=== PATIENT | female | born 1950 | race Caucasian/White ===

== ENCOUNTER 2019-04-23 14:38 | Emergency (ER) | payer OTHER ==
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
--- NOTE | 2019-04-23 15:37 | ER ---
Nurse's Notes [facility] Name: Laurita Corcoran Age: 68 yrs Sex: Female : 1950 Arrival Date: 04/23/2019 Time: 14:40 Bed 7 Private MD: Diagnosis: Radiculopathy, cervical region;Pain in left arm Presentation: 04/23 14:46 Presenting complaint: Patient states: "Last night I got to hurting so bad in my left aj1 arm, it was like I had 100 of them red wasps stinging my shoulder then it went all the way down my arm to my hand. I've been taking ibuprofen and ecotrin to stop the pain" Denies any recent injury to shoulder. Reports that pain is aggravated by moving her arm. Transition of care: patient was not received from another setting of care. Onset of symptoms was April 23, 2019. Risk Assessment: Do you want to hurt yourself or someone else? Patient reports no desire to harm self or others. Initial Sepsis Screen: Does the patient meet any 2 criteria? No. Patient's initial sepsis screen is negative. Does the patient have a suspected source of infection? No. Patient's initial sepsis screen is negative. Care prior to arrival: None. 14:46 Method Of Arrival: Ambulatory aj 14:46 Acuity: VANESSA 3 aj1 Triage Assessment: 14:48 General: Appears in no apparent distress. comfortable, Behavior is calm, cooperative, aj1 appropriate for age. Pain: Complains of pain in anterior aspect of left shoulder and posterior aspect of left shoulder Pain currently is 10 out of 10 on a pain scale. Neuro: Level of Consciousness is awake, alert, obeys commands. Cardiovascular: Patient's skin is warm and dry. Respiratory: Airway is patent Respiratory effort is even, unlabored, Respiratory pattern is regular, symmetrical. Historical: - Allergies: 14:48 Codeine; aj1 - Home Meds: 14:48 Lisinopril Oral [Active]; aj1 - PMHx: 14:48 Hypertension; aj1 - Immunization history:: Flu vaccine is not up to date. - Social history:: Smoking status: Patient/guardian denies using tobacco. - Ebola Screening: : Patient denies travel to an Ebola-affected area in the 21 days before illness onset. Screenin:37 Abuse screen: Denies threats or abuse. Denies injuries from another. Nutritional jl7 screening: No deficits noted. Tuberculosis screening: No symptoms or risk factors identified. Fall Risk None identified. Assessment: 15:00 General: Appears in no apparent distress. uncomfortable, Behavior is calm, cooperative, jl7 appropriate for age. Pain: Complains of pain in left arm Pain currently is 4 out of 10 on a pain scale. at worst was 10 out of 10 on a pain scale. Quality of pain is described as stinging, Pain began 2-3 days ago. Is continuous. Neuro: Level of Consciousness is awake, alert, obeys commands, Oriented to person, place, time, situation. Cardiovascular: Patient's skin is warm and dry. Respiratory: Airway is patent Respiratory effort is even, unlabored, Respiratory pattern is regular, symmetrical. Derm: Skin is pink, warm \\T\\ dry. Musculoskeletal: Range of motion: limited in left shoulder. Vital Signs: 14:49 BP 143 / 77; Pulse 83; Resp 18; Temp 98.1; Pulse Ox 97% on R/A; Weight 65.77 kg (R); aj1 Height 5 ft. 3 in. (160.02 cm) (R); Pain 10/10; 15:37 BP 156 / 74; Pulse 73; Resp 16 S; Pulse Ox 96% on R/A; Pain 4/10; jl7 14:49 Body Mass Index 25.69 (65.77 kg, 160.02 cm) aj1 ED Course: 14:40 Patient arrived in ED. as 14:48 Triage completed. aj1 14:49 Arm band placed on Patient placed in an exam room. aj1 15:01 Lucille Schroeder FNP-C is PHCP. snw 15:01 Yuri Casitllo MD is Attending Physician. snw 15:08 Liz Ross RN is Primary Nurse. jl7 15:13 CT completed. Patient tolerated procedure well. Patient moved to CT via wheelchair. Patient moved back from CT. 15:19 CT Head C Spine In Process Unspecified. EDMS 15:37 Patient has correct armband on for positive identification. Bed in low position. Call jl7 light in reach. Side rails up X 1. Pulse ox on. NIBP on. 15:51 No provider procedures requiring assistance completed. Patient did not have IV access hb during this emergency room visit. Administered Medications: 15:42 Not Given (Patient Refused): fentaNYL (PF) 25 mcg IM once; RASS on ADMIN: Combtv4, Very jl7 Agttd3, Agttd2, Rstlss1, AlertClm0, Drwsy-1, Lt Sdtn-2, Mod Sdtn-3, Dp Sdtn-4, UnArsble-5 Outcome: 15:36 Discharge ordered by MD. hoskins 15:51 Discharged to home ambulatory. hb 15:51 Condition: stable 15:51 Discharge instructions given to patient, Instructed on discharge instructions, follow up and referral plans. medication usage, Demonstrated understanding of instructions, follow-up care, medications, Prescriptions given X 2. 15:51 Patient left the ED. hb Signatures: Dispatcher [employer] EDMS Carol Myers, RN RN aj1 Lucille Schroeder, SPECIAL EVENTS ASSISTANT-C SPECIAL EVENTS ASSISTANT-Csnw Maria M Ramirez Shannon sw Baxter, Heather, RN RN Liz Ross RN RN jl7 Corrections: (The following items were deleted from the chart) 14:49 14:46 Presenting complaint: Patient states: "Last night I got to hurting so bad in my aj1 left arm, it was like I had 100 of them red wasps stinging my shoulder then it went all the way down my arm to my hand. I've been taking ibuprofen and ecotrin to stop the pain" Denies any recent injury to shoulder. Reports that pain is aggravated by moving her arm aj1 14:49 14:48 Pain: Complains of pain in anterior aspect of right shoulder and posterior aspect aj1 of right shoulder Pain currently is 10 out of 10 on a pain scale. aj1
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
[2019-04-23 16:09] VITALS: TEMP 98.1
[2019-04-23 16:11] VITALS: BP 156/74; O2SAT 96
== END 2019-04-23 15:51 | disposition home or self-care (01) ==
LOC: ER 14:38
DX: M79.602 Pain in left arm (principal); M54.12 Radiculopathy, cervical region
CPT/HCPCS: 70450; 72125; 99284

== ENCOUNTER 2020-09-27 16:43 | Emergency (ER) | payer OTHER ==
--- OUTSIDE RECORDS SUMMARY | 2020-09-27 16:47 | XMS REPORT | Continuity of Care Document ---
:1950 Author Organization [facility] t Address [address] [place] [address] Care Team Providers Name Role Phone Asked, Pcp Primary Care Physician Unavailable Problems This patient has no known problems. Allergies, Adverse Reactions, Alerts Allergy Allergy Status Severity Reaction(s) Onset Inactive Treating Comm ents Source Name Type Date Date Clinician Adhesive Propensi Active [place] [facility] ty to 5-20 Methodi icones adverse 00:00: st reaction 00 s to drug Codeine Propensi Active [facility] [place] ty to Intolerance 5-20 Metho di adverse 00:00: st reaction 00 s to drug Social History Social Habit Start Date Stop Date Quantity Comments Source Tobacco use and 2018-10-05 2018-10-05 Never used [facility] ethodist exposure 00:00:00 00:00:00 Alcohol intake 2018-10-05 2018-10-05 Current drinker [place] 00:00:00 00:00:00 of alcohol (finding) Alcohol Comment 2018-10-02 2018-10-02 occasion [facility] ethodist 00:00:00 00:00:00 Sex Ass[birth year] [facility] ethodist 00:00:00 00:00:00 Smoking Status Start Date Stop Date Source Never smoker [place] Method[facility] t Medications Ordered Filled Start Stop Current Ordering Indication Dosage Frequency Signature Comments Components Source Medication Medication Date Date Medication? Clinician (SIG) Name Name omega-3 2019- Yes 1g QD Take 1 g [place] acid ethyl 5-20 by mouth Metho di esters 17:08: daily. st (LOVAZA) 1 45 gram capsule cyanocobala 2018- Yes 2500ug QD Place Jean ston min, 5-20 2,500 mcg Methodi vitamin 17:08: under the st B-12, 5,000 45 tongue mcg tablet, daily. sublingual Procedures This patient has no known procedures. Encounters Start End Encounter Admission Attending Care Care Encounter Source Date/Time Date/Time Type Type Clinicians Facility Department ID 2020-07-31 2020-07-31 Outpatient [facility] [id number] [facility] 00[facility] 00:[facility]00 [facility] 2020-06-26 2020-06-26 Outpatient [facility] [id number] [facility]00 [facility] Results This patient has no known results.
[2020-09-27] MEDS ORDERED: IBUPROFEN 200 MG TAB PO ONE (17:37)
[2020-09-27] MEDS ORDERED: IBUPROFEN 400 MG TAB ONE (17:38)
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
--- NOTE | 2020-09-27 18:31 | ER ---
Nurse's Notes [facility] Name: Laurita Corcoran Age: 69 yrs Sex: Female : 1950 Arrival Date: 09/27/2020 Time: 16:44 Bed 2 Private MD: Diagnosis: Fall (on) (from) other stairs and steps;Displaced comminuted fracture of shaft of radius, right arm-comminuted fracture distal right radius, extends intraarticularly, mild to moderate displacement of fracture fragments;Other and unspecified ovarian cysts-4 cm left cystic mass, further evaluation needed Presentation: 09/27 16:55 Chief complaint: Patient states: Patient states that she was trying to trim a palm tree aj1 in her yard, when she lost her balance and fell of the ladder, falling 7 and a half feet. Denies hitting head, denies neck pain, head pain or back pain. States that she landed on her right side and now is having severe pain in the right wrist. Patient states that she passed out for "a few seconds" when she hit the ground. Care prior to arrival: None. Mechanism of Injury: Fall from ladder approximately 7.5 feet. Trauma event details: Injury occurred in the [facility]. 16:55 Acuity: VANESSA 3 aj1 16:55 Method Of Arrival: Wheelchair aj1 16:59 Coronavirus screen: Client denies travel out of the [place] in the last 14 days. At this aj1 time, the client does not indicate any symptoms associated with coronavirus-19. Ebola Screen: Patient denies travel to an Ebola-affected area in the 21 days before illness onset. Initial Sepsis Screen: Does the patient meet any 2 criteria? No. Patient's initial sepsis screen is negative. Does the patient have a suspected source of infection? No. Patient's initial sepsis screen is negative. Risk Assessment: Do you want to hurt yourself or someone else? Patient reports no desire to harm self or others. Onset of symptoms was September 27, 2020. 17:02 Acuity: VANESSA 2 aj1 Historical: - Allergies: 17:00 Codeine; aj1 - Home Meds: 17:00 lisinopril Oral [Active]; Lipitor Oral [Active]; aj1 - PMHx: 17:00 Hypertension; Hyperlipidemia; aj1 - Immunization history:: Adult Immunizations up to date, Client reports having NOT received the Covid vaccine. - Social history:: Smoking status: Patient/guardian denies using tobacco. Screenin:55 Abuse screen: Denies threats or abuse. Denies injuries from another. Tuberculosis aj1 screening: No symptoms or risk factors identified. 19:39 Nutritional screening: No deficits noted. Fall Risk None identified. ea Primary Survey: 16:55 NO uncontrolled hemorrhage observed. A: The patient is alert. Airway: patent. aj1 Breathing/Chest: Respiratory pattern: regular, Respiratory effort: spontaneous, unlabored. Circulation: Skin color: pink. Disability Alert. 17:31 Reassessment Breathing/Chest Respiratory pattern Regular Respiratory effort Spontaneous tr6 Unlabored. Assessment: 16:55 General: Appears in no apparent distress. uncomfortable, Behavior is calm, cooperative, aj1 appropriate for age. Pain: Complains of pain in right wrist Pain does not radiate. Pain currently is 9 out of 10 on a pain scale. Quality of pain is described as sharp, shooting. Neuro: Level of Consciousness is awake, alert, obeys commands. Cardiovascular: Denies chest pain, Patient's skin is warm and dry. Respiratory: Airway is patent Respiratory effort is even, unlabored, Respiratory pattern is regular, symmetrical, Denies shortness of breath. Musculoskeletal: Range of motion: limited in right wrist. 17:06 Reassessment: MD Johnson at bedside. tr6 17:23 General: Behavior is flat, listless. Pain: Complains of pain in right wrist. Neuro: No tr6 deficits noted. Cardiovascular: No deficits noted. Respiratory: No deficits noted. GI: Reports nausea, vomiting, pt states she was feeling so bad on the way over that she had to stop and throw up on the side of the road. : No deficits noted. EENT: No deficits noted. Derm: No deficits noted. 19:39 Reassessment: Patient and/or family updated on plan of care and expected duration. Pain ea level reassessed. Patient is alert, oriented x 3, equal unlabored respirations, skin warm/dry/pink. Discharge instruction given to patient and family both verbalized the understanding of instruction. Pt left ED ambulatory tolerating well. Vital Signs: 16:55 BP 136 / 58; Pulse 72; Resp 18; Temp 97.3; Pulse Ox 98% on R/A; Weight 68.04 kg (R); aj1 Height 5 ft. 3 in. (160.02 cm) (R); Pain 9/10; 19:30 BP 130 / 70; Pulse 70; Resp 18; Temp 98; Pulse Ox 99% ; ea 16:55 Body Mass Index 26.57 (68.04 kg, 160.02 cm) aj1 [place] Coma Score: 16:55 Eye Response: spontaneous(4). Verbal Response: oriented(5). Motor Response: obeys aj1 commands(6). Total: 15. Trauma Score (Adult): 16:55 Eye Response: spontaneous(1); Verbal Response: oriented(1); Motor Response: obeys aj1 commands(2); Systolic BP: > 89 mm Hg(4); Respiratory Rate: 10 to 29 per min(4); [place] Score: 15; Trauma Score: 12 ED Course: 16:44 Patient arrived in ED. as 16:50 Jovan Johnson MD is Attending Physician. nanda 16:55 Patient has correct armband on for positive identification. Bed in low position. Call aj1 light in reach. 16:55 Patient maintains SpO2 saturation greater than 95% on room air. aj1 16:57 Triage completed. aj1 17:00 Arm band placed on Patient placed in an exam room, Patient Patient triaged in ER bed 2. aj1 17:25 No provider procedures requiring assistance completed. tr6 17:28 Wrist Right 3 View XRAY In Process Unspecified. EDMS 17:42 Riccardo Sullivan, CHRISTINA is Primary Nurse. bp 18:02 CT Traumagram (Head C Spine CAP wo con) In Process Unspecified. EDMS 18:29 Hossein Mckeon MD is Referral Physician. nanda 18:30 Lorena Ray MD is Referral Physician. nanda 19:38 Orthoglass splint: Sugar tong splint applied on right arm. Sling applied to right arm. oe 19:39 Thermoregulation: warm blanket given to patient. ea 19:39 Patient did not have IV access during this emergency room visit. ea Administered Medications: 17:22 Drug: Motrin (ibuprofen) 600 mg Route: PO; tr6 18:49 Follow up: Response: Pain is decreased tr6 Outcome: 18:30 Discharge ordered by . nanda 19:38 Discharged to home ambulatory, with family. ea 19:38 Condition: stable 19:38 Discharge instructions given to patient, Instructed on discharge instructions, follow up and referral plans. medication usage, Demonstrated understanding of instructions, follow-up care, medications, Prescriptions given X 2. 19:40 Patient's length of stay was not longer than 2 hours. ea 19:42 Patient left the ED. ea Signatures: Dispatcher [employer] EDNV Carol Myers RN RN ajJovan Johnson MD MD cha Martinez, Amelia as Espinosa, Orlando oe Antunez, Elena, Riccardo Donahue RN, ea, RN RN La Benavides RN RN tr6
--- NOTE | 2020-09-27 18:31 | EDPHYS ---
Physician Documentation [facility] Name: Laurita Corcoran Age: 69 yrs Sex: Female : 1950 Arrival Date: 09/27/2020 Time: 16:44 Bed 2 Private MD: ED Physician Jovan Johnson HPI: 09/27 17:19 This 69 yrs old Female presents to ER via Wheelchair with complaints of Fall annda Injury - 7 1/2 feet +loc, Wrist Injury, Vomiting. 17:19 Details of fall: The patient fell from a height, from a ladder, approximately 6 feet. nanda Associated injuries: The patient sustained right wrist, decreased range of motion, obvious fracture, painful injury. Severity of symptoms: At their worst the symptoms were mild, in the emergency department the symptoms are unchanged. The patient has not experienced similar symptoms in the past. Historical: - Allergies: 17:00 Codeine; aj1 - Home Meds: 17:00 lisinopril Oral [Active]; Lipitor Oral [Active]; aj1 - PMHx: 17:00 Hypertension; Hyperlipidemia; aj1 - Immunization history:: Adult Immunizations up to date, Client reports having NOT received the Covid vaccine. - Social history:: Smoking status: Patient/guardian denies using tobacco. ROS: 17:21 Constitutional: Negative for fever, chills, and weight loss, Eyes: Negative for injury, nanda pain, redness, and discharge, ENT: Negative for injury, pain, and discharge, Neck: Negative for injury, pain, and swelling, Cardiovascular: Negative for chest pain, palpitations, and edema, Respiratory: Negative for shortness of breath, cough, wheezing, and pleuritic chest pain, Abdomen/GI: Negative for abdominal pain, nausea, vomiting, diarrhea, and constipation, Back: Negative for injury and pain, : Negative for injury, bleeding, discharge, and swelling, Skin: Negative for injury, rash, and discoloration, Neuro: Negative for headache, weakness, numbness, tingling, and seizure, Psych: Negative for depression, anxiety, suicide ideation, homicidal ideation, and hallucinations, Allergy/Immunology: Negative for hives, rash, and allergies, Endocrine: Negative for neck swelling, polydipsia, polyuria, polyphagia, and marked weight changes, Hematologic/Lymphatic: Negative for swollen nodes, abnormal bleeding, and unusual bruising. 17:21 MS/extremity: Positive for decreased range of motion, pain, swelling, tenderness, of the dorsal aspect of right wrist and palmar aspect of right wrist. Exam: 17:21 Constitutional: This is a well developed, well nourished patient who is awake, alert, nanda and in no acute distress. Head/Face: Normocephalic, atraumatic. Eyes: Pupils equal round and reactive to light, extra-ocular motions intact. Lids and lashes normal. Conjunctiva and sclera are non-icteric and not injected. Cornea within normal limits. Periorbital areas with no swelling, redness, or edema. ENT: Nares patent. No nasal discharge, no septal abnormalities noted. Tympanic membranes are normal and external auditory canals are clear. Oropharynx with no redness, swelling, or masses, exudates, or evidence of obstruction, uvula midline. Mucous membranes moist. Neck: Trachea midline, no thyromegaly or masses palpated, and no cervical lymphadenopathy. Supple, full range of motion without nuchal rigidity, or vertebral point tenderness. No Meningismus. Chest/axilla: Normal chest wall appearance and motion. Nontender with no deformity. No lesions are appreciated. Cardiovascular: Regular rate and rhythm with a normal S1 and S2. No gallops, murmurs, or rubs. Normal PMI, no JVD. No pulse deficits. Respiratory: Lungs have equal breath sounds bilaterally, clear to auscultation and percussion. No rales, rhonchi or wheezes noted. No increased work of breathing, no retractions or nasal flaring. Abdomen/GI: Soft, non-tender, with normal bowel sounds. No distension or tympany. No guarding or rebound. No evidence of tenderness throughout. Back: No spinal tenderness. No costovertebral tenderness. Full range of motion. Neuro: Awake and alert, GCS 15, oriented to person, place, time, and situation. Cranial nerves II-XII grossly intact. Motor strength 5/5 in all extremities. Sensory grossly intact. Cerebellar exam normal. Normal gait. Psych: Awake, alert, with orientation to person, place and time. Behavior, mood, and affect are within normal limits. 17:21 Musculoskeletal/extremity: ROM: limited active range of motion, limited passive range of motion, limited active range of motion due to pain, limited passive range of motion due to pain, Circulation is intact in all extremities. Sensation intact. Compartment Syndrome exam of affected extremity: is normal. DVT Exam: negative Homans' sign noted on exam, no appreciated bluish discoloration, no erythema, no increased warmth, pain, swelling, tenderness. Vital Signs: 16:55 BP 136 / 58; Pulse 72; Resp 18; Temp 97.3; Pulse Ox 98% on R/A; Weight 68.04 kg (R); aj1 Height 5 ft. 3 in. (160.02 cm) (R); Pain 9/10; 19:30 BP 130 / 70; Pulse 70; Resp 18; Temp 98; Pulse Ox 99% ; ea 16:55 Body Mass Index 26.57 (68.04 kg, 160.02 cm) aj1 [place] Coma Score: 16:55 Eye Response: spontaneous(4). Verbal Response: oriented(5). Motor Response: obeys aj1 commands(6). Total: 15. Trauma Score (Adult): 16:55 Eye Response: spontaneous(1); Verbal Response: oriented(1); Motor Response: obeys aj1 commands(2); Systolic BP: > 89 mm Hg(4); Respiratory Rate: 10 to 29 per min(4); [place] Score: 15; Trauma Score: 12 MDM: 16:50 Patient medically screened. [facility] 17:25 Differential diagnosis: abrasion, closed head injury, contusion, fracture, laceration, nanda multiple trauma, sprain, strain. Differential diagnosis: closed fracture, contusion. Data reviewed: vital signs, nurses notes, lab test result(s), radiologic studies, CT scan, plain films. Data interpreted: monitor worker: rate is 72 beats/min, rhythm is regular, Pulse oximetry: on room air. Test interpretation: by ED physician or midlevel provider: plain radiologic studies. Counseling: I had a detailed discussion with the patient and/or guardian regarding: the historical points, exam findings, and any diagnostic results supporting the discharge/admit diagnosis, lab results, radiology results, the need for outpatient follow up, for definitive care, a family practitioner, a orthopedic surgeon. 09/27 17:09 Order name: CT Traumagram (Head C Spine CAP wo con) [facility] 09/27 17:09 Order name: Wrist Right 3 View XRAY; Complete Time: 17:52 [facility] 09/27 17:09 Order name: Ice pack; Complete Time: 18:11 [facility] 09/27 17:19 Order name: Sugar Tong Forearm Splint; Complete Time: 19:41 [facility] 09/27 17:19 Order name: Sling; Complete Time: 19:41 [facility] Administered Medications: 17:22 Drug: Motrin (ibuprofen) 600 mg Route: PO; tr6 18:49 Follow up: Response: Pain is decreased tr6 Disposition: 09/27/20 18:30 Discharged to Home. Impression: Fall (on) (from) other stairs and steps, Displaced comminuted fracture of shaft of radius, right arm - comminuted fracture distal right radius, extends intraarticularly, mild to moderate displacement of fracture fragments, Other and unspecified ovarian cysts - 4 cm left cystic mass, further evaluation needed. - Condition is Stable. - Discharge Instructions: Colles Fracture, Fall Prevention in the Home, Radial Fracture, Fall Prevention in the Home, [id number]. - Prescriptions for Tramadol 50 mg Oral Tablet - take 1 tablet by ORAL route every 6 hours as needed; 24 tablet. Motrin IB 200 mg Oral Tablet - take 2 tablet by ORAL route every 6 hours As needed as needed with food; 30 tablet. - Medication Reconciliation Form, Thank You Letter, Antibiotic Education, Prescription Opioid Use form. - Follow up: Private Physician; When: 2 - 3 days; Reason: Recheck today's complaints, Re-evaluation by your physician. Follow up: Hossein Mckeon; When: 2 - 3 days; Reason: Recheck today's complaints, Re-evaluation by your physician. Follow up: Lorena Ray MD; When: 5 - 6 days; Reason: Recheck today's complaints, Re-evaluation by your physician. - Problem is new. - Symptoms have improved. Signatures: Dispatcher [employer] Carol Cazares RN RN Jovan Ling MD MD cha Antunez, Elena, RN RN ea Ramnanan, Tiffany, RN RN tr6 Corrections: (The following items were deleted from the chart) 18:31 18:30 09/27/2020 18:30 Discharged to Home. Impression: Fall (on) (from) other stairs nanda and steps; Displaced comminuted fracture of shaft of radius, right arm - comminuted fracture distal right radius, extends intraarticularly, mild to moderate displacement of fracture fragments; Other and unspecified ovarian cysts - 4 cm left cystic mass, further evaluation needed. Condition is Stable. Discharge Instructions: Colles Fracture, Radial Fracture, Fall Prevention in the Home, Fall Prevention in the Home, [id number]. Prescriptions for Tramadol 50 mg Oral Tablet - take 1 tablet by ORAL route every 6 hours as needed; 24 tablet, Motrin IB 200 mg Oral Tablet - take 2 tablet by ORAL route every 6 hours As needed as needed with food; 30 tablet. and Forms are Medication Reconciliation Form, Thank You Letter, Antibiotic Education, Prescription Opioid Use. Follow up: Private Physician; When: 2 - 3 days; Reason: Recheck today's complaints, Re-evaluation by your physician. Follow up: Hossein Mckeon; When: 2 - 3 days; Reason: Recheck today's complaints, Re-evaluation by your physician. Problem is new. Symptoms have improved. nanda 19:42 18:31 09/27/2020 18:30 Discharged to Home. Impression: Fall (on) (from) other stairs ea and steps; Displaced comminuted fracture of shaft of radius, right arm - comminuted fracture distal right radius, extends intraarticularly, mild to moderate displacement of fracture fragments; Other and unspecified ovarian cysts - 4 cm left cystic mass, further evaluation needed. Condition is Stable. Discharge Instructions: Colles Fracture, Radial Fracture, Fall Prevention in the Home, Fall Prevention in the Home, [id number]. Prescriptions for Tramadol 50 mg Oral Tablet - take 1 tablet by ORAL route every 6 hours as needed; 24 tablet, Motrin IB 200 mg Oral Tablet - take 2 tablet by ORAL route every 6 hours As needed as needed with food; 30 tablet. and Forms are Medication Reconciliation Form, Thank You Letter, Antibiotic Education, Prescription Opioid Use. Follow up: Private Physician; When: 2 - 3 days; Reason: Recheck today's complaints, Re-evaluation by your physician. Follow up: Hossein Mckeon; When: 2 - 3 days; Reason: Recheck today's complaints, Re-evaluation by your physician. Follow up: Lorena Ray; When: 5 - 6 days; Reason: Recheck today's complaints, Re-evaluation by your physician. Problem is new. Symptoms have improved. nanda
[2020-09-27 19:51] VITALS: BP 130/70; TEMP 98; O2SAT 99
== END 2020-09-27 19:42 | disposition home or self-care (01) ==
LOC: ER 16:43
PROC: 2W3CX1Z Immobilization of Right Lower Arm using Splint (ICD-10-PCS; principal; 2020-09-27)
DX: S52.351A Displaced comminuted fracture of shaft of radius, right arm, initial encounter for closed fracture (principal); N83.299 Other ovarian cyst, unspecified side; N83.9 Noninflammatory disorder of ovary, fallopian tube and broad ligament, unspecified; W11.XXXA Fall on and from ladder, initial encounter; I10 Essential (primary) hypertension; E78.5 Hyperlipidemia, unspecified; Z88.5 Allergy status to narcotic agent
CPT/HCPCS: 70450; 71250; 72125; 99284